=== PATIENT | female | born 1955 | race Caucasian/White ===

== ENCOUNTER 2018-09-05 20:17 | Inpatient (IN) | payer OTHER ==
--- OUTSIDE RECORDS SUMMARY | 2018-09-05 20:42 | XMS REPORT | Continuity of Care Document ---
:1955 External Reference #:[id number] Author Name Magali Tinoco Care Team Providers Name Role Phone Julienne Hernandez MD Primary Care Physician Unavailable Payers Date Identification Numbers Payment Provider Subscriber Policy Number: [id number] Cesar Luna PayID: [id number] [address] [place] [address] Problems Active Problems Provider Date Essential hypertension Ghassan Franco M.D. Onset: 11/12/2017 Family History Date Family Member(s) Observation Comments General Hypertension daughter General Obesity Father Alive And Well Social History Type Date Description Comments Sex Unknown Marital Status Single Occupation Unemployed ETOH Use Occasionally consumes alcohol Tobacco Use Start: Unknown Patient is a current smoker, 1/4-1/2 ppd; max 1ppd, smokes every day began age 13 Smoking Status Reviewed: 08/11/18 Patient is a current smoker, 1/4-1/2 ppd; max 1ppd, smokes every day began age 13 Allergies, Adverse Reactions, Alerts Description No Known Drug Allergies Medications Active Medications SIG Qnty Indications Ordering Date Provider Nicotine Transdermal Use one patch 28units Z72.0 Jc S. 08/11/2018 System Step 2 daily, use Jorge, DO FACC 14mg/24HR generic Patches 24HR Nicotrol Use generic, 168units Z72.0 Jc S. 08/11/2018 10mg Inhaler every 2 to 3 Jorge, DO FACC hours as needed for nicotine cravings Lisinopril-Hydrochloro 1/2 tab by mouth Unknown thiazide every day 10-12.5mg Tablets Spironolactone 2x week Unknown 25mg Tablets Meloxicam 1 by mouth every Unknown 15mg Tablets day prn Furosemide 1 by mouth twice Unknown 20mg Tablets a week D3 Super Strength take one Unknown capsule/tablet 2000Unit Capsules daily by mouth Alavert Allergy/Sinus 1 every 12 hours Unknown as needed 5-120mg Tablets ER 12HR History Medications Duloxetine HCL take 1 capsule by beto Franco, 11/12/2017 - 30mg mouth every M.D. 12/11/[address] Part morning for 1 week, then 2 tabs daily Furosemide 2x week Unknown - 40mg Tablets 07/16/2018 Phentermine HCL Unknown - 30mg 08/07/2018 Capsules Sertraline HCL 1 by mouth every Unknown - 25mg day 08/10/2018 Tablets Pretz Sod Chloride-Yerba Unknown - Solution Ree-Gly Solution 08/10/2018 as directed for nasal drip Wild Lomax Flavor wild lomax Unknown - extract otc herbal 08/10/2018 Liquid use as directed Vital Signs Date Vital Result Comment 08/11/2018 11:43am Height 61.5 inches 5'1.50" Weight 192.00 lb no shoes Heart Rate 80 /min BP Systolic Sitting 110 mmHg lue reg cuff BP Diastolic Sitting 70 mmHg lue reg cuff BP Systolic Standing 108 mmHg lue reg cuff BP Diastolic Standing 70 mmHg lue reg cuff Respiratory Rate 14 /min BMI (Body Mass Index) 35.7 kg/m2 12/12/2017 11:45am Height 61.5 inches 5'1.50" Weight 215.00 lb Heart Rate 87 /min BP Systolic Sitting 114 mmHg "113-117/70" at home readings BP Diastolic Sitting 68 mmHg "113-117/70" at home readings O2 % BldC Oximetry 97 % BMI (Body Mass Index) 40.0 kg/m2 11/12/2017 10:45am Height 61.5 inches 5'1.50" Weight 213.00 lb Heart Rate 87 /min BP Systolic Sitting 124 mmHg BP Diastolic Sitting 80 mmHg O2 % BldC Oximetry 97 % BMI (Body Mass Index) 39.6 kg/m2 Procedures Date Code Description Status 08/11/2018 60370 EKG Tracing & Interpretation Completed Encounters Type Date Location Provider Dx Diagnosis Office Visit 06/22/2018 [facility] Jose Luis Vargas MD L82.1 Other seborrheic 4:10p keratosis L73.8 Other specified follicular disorders D23.5 Other benign neoplasm of skin of trunk I83.92 Asymptomatic varicose veins of left lower extremity Office Visit 12/12/2017 [facility] Ghassan E. I10 Essential 11:20a IsaccDalila Franco M.D. (primary) hypertension M79.7 Fibromyalgia F34.1 Dysthymic disorder Office Visit 11/12/2017 [facility] Ghassan E. I10 Essential 10:20a Danielito Franco M.D. (primary) hypertension M79.7 Fibromyalgia F34.1 Dysthymic disorder Z13.220 Encounter for screening for lipoid disorders K76.0 Fatty (change of) liver, not elsewhere classified R87.619 Unsp abnormal cytolog findings in specmn from cervix uteri Plan of Treatment 08/11/2018 - Jc Jorge DO FACCE78.5 Hyperlipidemia, unspecifiedComments: As we discussed today, your 10 year risk based on April, labs of having a heart attack or similar cardiovascular event is 9.3%.When this number is greater than 7.5%, we recommend starting a statin. This would decrease your risk to 7% over the next 10 years.You have started a diet and have lost 20 pound since these labs were checked. You want to wait until you have lost further weight and have the lipids rechecked before deciding on starting a statin which is reasonable.Quitting smoking is thesingle best thing you can do for your health.Follow up:PRNI10 Essential (primary) vtwxbfgkgzmbW68.0 Tobacco useNew Medication:Nicotine Transdermal System Step 2 14 mg/24HR - Use one patch daily, use genericNicotrol 10 mg - Use generic, every 2 to 3 hours as needed for nicotine cravings
--- OUTSIDE RECORDS SUMMARY | 2018-09-05 20:42 | XMS REPORT | Continuity of Care Document ---
:1955 External Reference #:[id number] Author Name Jeremiah Edwards MD Address [address] [place] [address] Care Team Providers Name Role Phone Julienne Hernandez MD Care Team Information Numerologist Unavailable Julienne Hernandez MD Primary Care Physician Unavailable Payers Date Identification Numbers Payment Provider Subscriber Policy Number: [id number] [facility] Allison Luna PayID: [id number] [address] [place] [address] Problems Active Problems Provider Date Essential hypertension Jeremiah Edwards MD Onset: 07/31/2018 Allergic rhinitis Jeremiah Edwards MD Onset: 07/31/2018 Allergic rhinitis due to pollen Jeremiah Edwards MD Onset: 07/31/2018 Family History Date Family Member(s) Observation Comments General No Current Problems Social History Type Date Description Comments Sex Unknown Tobacco Use Start: Unknown Home is not smoke-free Pets Fish Pets 2 cats Tobacco Use Start: Unknown Heavy tobacco smoker (more than 10 cigarettes/day) Smoking Status Reviewed: 08/26/18 Heavy tobacco smoker (more than 10 cigarettes/day) Allergies, Adverse Reactions, Alerts Description No Known Drug Allergies Medications Active Medications SIG Qnty Indications Ordering Provider Date Fluticasone Propionate [place] 2 sprays 1units J30.1 Jeremiah Yo 2018 in each nostril MD Jerry 50mcg/Act Suspension once daily Alavert one tablet by 30tabs J30.1 Jeremiah Yo 07/31/2018 10mg Tablets mouth every day MD Jerry Dispers as needed Meloxicam Take 1 Tablet Unknown 15mg Tablets By Mouth Every Day [facility] D3 Take One Unknown 2000Unit Capsules Capsule By Mouth Every Day For 90 Days Sertraline HCL Take 1 Tablet Unknown 25mg By Mouth Every Tablets Day [facility] Fish Oil Take 2 Capsules Unknown 1200mg By Mouth Every Capsules DR Day Furosemide Take 1 Tablet Unknown 20mg Tablets By Mouth Every Day as Needed For Edema Lisinopril-Hydrochloro Take 1 Tablet Unknown thiazide By Mouth Every 10-12.5mg Day Tablets Spironolactone Take 1 Tablet Unknown 25mg By Mouth Every Tablets Day Duloxetine HCL Take One Unknown 30mg Caps Capsule By DR Part Mouth Every Morning For 1 Week Then 2 Capsules Daily History Medications Flonase Allergy 2 puffs each 9.900ml Porfirio30.1 Jeremiah Yo 07/31/2018 - Relief nostril every MD Jerry 08/26/2018 50mcg/Act day Suspension Vital Signs Date Vital Result Comment 08/26/2018 11:24am BP Systolic 106 mmHg BP Diastolic 64 mmHg Height 63 inches 5'3" Weight 191.00 lb BMI (Body Mass Index) 33.8 kg/m2 Heart Rate 76 /min Respiratory Rate 16 /min O2 % BldC Oximetry 98 % Results Test Date Facility Test Result H/L Range Note Order 07/31/2018 [facility] Skin Test Seasonal and <pending> Environmental Procedures Date Code Description Status 07/31/2018 59986 Allergy Tests Percutaneous W/ Allergenic Extracts Completed Encounters Type Date Location Provider Dx Diagnosis Office Visit 08/26/2018 Adolfo Monroy30.1 Allergic rhinitis due 11:00a KIRA Glover to pollen J30.89 Other allergic rhinitis Office Visit 07/31/2018 11:00a Wendy Oneal Allergic rhinitis MD due to pollen J30.89 Other allergic rhinitis Plan of Treatment 08/26/2018 - Criselda Glover RPA-CJ30.1 Allergic rhinitis due to pollenNew Medication:Fluticasone Propionate 50 mcg/Act - [place] 2 sprays in each nostril once dailyComments:Patient with both seasonal and perennial allergic rhinitis. Total IgE level is 70.9 kU/l. I have discussed environmental controls for dust, dust mites, mold spores and pollen. Patient is not interestedin immunotherapy. Patient to continue Alavert as prescribed. Okay to add Fluticasone nasal spray forbreakthrough symptoms.Follow up:1 year.J30.89 Other allergic rhinitis
--- OUTSIDE RECORDS SUMMARY | 2018-09-05 20:42 | XMS REPORT | Continuity of Care Document ---
:1955 External Reference #:[id number] Author Name Ashlie Gomez Care Team Providers Name Role Phone Julienne Hernandez MD Care Team Information Speed Runner Unavailable Julienne Hernandez MD Primary Care Physician Unavailable Payers Date Identification Numbers Payment Provider Subscriber Policy Number: [id number] [facility] Allison Luna PayID: [id number] [address] [place] [address] Problems Active Problems Provider Date Essential hypertension [...] (more than 10 cigarettes/day) Smoking Status Reviewed: 07/31/18 Heavy tobacco smoker (more than 10 cigarettes/day) Allergies, Adverse Reactions, Alerts Description No Known Drug Allergies Medications Active Medications SIG Qnty Indications Ordering Provider Date Flonase Allergy 2 puffs each 9.900ml J30.1 Jeremiah oY 07/31/2018 Relief nostril every MD Jerry 50mcg/Act day Suspension Alavert one tablet by 30tabs J30.1 Jeremiah Yo 07/31/2018 10mg Tablets mouth every day MD Jerry Dispers as needed Meloxicam Take 1 Tablet Unknown 15mg Tablets By Mouth Every Day [facility] D3 Take One Unknown 2000Unit Capsule By Capsules Mouth Every Day For 90 Days Sertraline HCL Take 1 Tablet Unknown 25mg By Mouth Every Tablets Day [facility] Fish Oil Take 2 Capsules Unknown 1200mg By Mouth Every Capsules DR Day Furosemide Take 1 Tablet Unknown 20mg Tablets By Mouth Every Day as Needed For Edema Lisinopril-Hydrochlor Take 1 Tablet Unknown othiazide By Mouth Every 10-12.5mg Day Tablets Spironolactone Take 1 Tablet Unknown 25mg By Mouth Every Tablets Day Duloxetine HCL Take One Unknown 30mg Capsule By Caps DR Part Mouth Every Morning For 1 Week Then 2 Capsules Daily Vital Signs Date Vital Result Comment 08/26/2018 [...] Environmental Procedures Date Code Description Status 07/31/2018 82913 Allergy Tests Percutaneous W/ Allergenic Extracts Completed Encounters Type Date Location Provider Dx Diagnosis Office Visit 07/31/2018 [place] Jeremiah Edwards, J30.1 Allergic rhinitis 11:00a due to pollen J30.89 Other allergic rhinitis Plan of Treatment 07/31/2018 - Jeremiah Edwards MDJ30.1 Allergic rhinitis due to pollenNew Medication:Flonase Allergy Relief 50 mcg/Act - 2 puffs each nostril every dayAlavert 10 mg - one tablet by mouth every day as fghhofY19.89 Other allergic rhinitis
--- NOTE | 2018-09-05 22:01 | ED ---
Abdominal Pain/Female - HPI Summary HPI Summary: 63-year-old female presents with onset of right upper quadrant pain at 2 AM in the morning. States that she had 3 episodes of emesis throughout the night however has not had any further episodes during the day although she has not tried to eat anything. States she continues to have some intermittent nausea. States the pain is fairly constant. No aggravating or alleviating factors. Patient states that she has been on a high fat Keto diet. Last bowel movement was this morning and states was normal color and consistency. Denies fever, chills, chest pain, palpitations, shortness of breath, diarrhea, back or flank pain, dysuria, frequency, urgency, or hematuria. - History of Current Complaint Chief Complaint: EDAbdPain Stated Complaint: ABD PAIN PER EMS Time Seen by Provider: 09/05/18 22:00 Hx Obtained From: Patient Pain Intensity: 8 Allergies/Adverse Reactions: Allergies Allergy/AdvReac Type Severity Reaction Status Date / Time No Known Allergies Allergy Verified 09/05/18 20:24 Home Medications: Home Medications Furosemide 20 mg pe PO DAILY 09/05/18 [History Confirmed 09/05/18] Lisinopril/HCTZ 10/12.5(NF) [Zestoretic 10/12.5(NF)] 0.25 tab PO DAILY 09/05/18 [History Confirmed 09/05/18] Loratadine [Alavert] 1 tab PO DAILY 09/05/18 [History Confirmed 09/05/18] PMH/Surg Hx/FS Hx/Imm Hx Previously Healthy: Yes Cardiovascular History: Reports: Hx Hypertension GI History: Denies: Hx Diverticulosis, Hx Gall Bladder Disease, Hx Gastroesophageal Reflux Disease, Hx Gastrointestinal Bleed, Hx Obstructive Bowel - Surgical History Surgical History: None Infectious Disease History: No Infectious Disease History: Denies: Traveled Outside the [place] in Last 30 Days - Family History Known Family History: Positive: Non-Contributory - Social History Occupation: Unemployed Lives: Alone Review of Systems Negative: Fever, Chills Cardiovascular: Negative Respiratory: Negative Positive: Abdominal Pain, Vomiting, Nausea. Negative: Diarrhea Negative: dysuria, discharge, frequency, flank pain, hematuria, urgency Musculoskeletal: Negative Skin: Negative Neurological: Negative All Other Systems Reviewed And Are Negative: Yes Physical Exam - Summary Physical Exam Summary: GENERAL APPEARANCE: Well developed, well nourished, alert and cooperative, and appears to be in no acute distress. CARDIAC: Normal S1 and S2. No S3, S4 or murmurs. Rhythm is regular. There is no peripheral edema, cyanosis or pallor. Extremities are warm and well perfused. Capillary refill is less than 2 seconds. Peripheral pulses intact. LUNGS: Clear to auscultation without rales, rhonchi, wheezing or diminished breath sounds. ABDOMEN: Positive bowel sounds. Soft, nondistended. RUQ tenderness with + Laura 's sign. No masses or hepatosplenomegally. No CVA tenderness. MUSKULOSKELETAL: ROM intact to all extremities. No joint erythema or tenderness. Normal muscular development. SKIN: Skin normal color, texture and turgor with no lesions or eruptions. Triage Information Reviewed: Yes Vital Signs On Initial Exam: Initial Vitals Temp Pulse Resp BP Pulse Ox 97.3 F 86 16 130/67 94 09/05/18 20:22 09/05/18 20:22 09/05/18 20:22 09/05/18 20:22 09/05/18 20:22 Vital Signs Reviewed: Yes Diagnostics - Vital Signs Vital Signs Temp Pulse Resp BP Pulse Ox 09/05/18 20:22 97.3 F 86 16 130/67 94 - Laboratory Result Diagrams: 09/08/18 07:03 09/08/18 07:03 Lab Statement: Any lab studies that have been ordered have been reviewed, and results considered in the medical decision making process. - Ultrasound No standard instances Ultrasound Interpretation Completed By: Radiologist Summary of Ultrasound Findings: EXAM: US Abdomen Limited, Right Upper Quadrant. EXAM DATE/TIME: 09/05/2018 10:38 PM. CLINICAL HISTORY: 63 years old , female; Abdominal pain; Tenderness; Right upper quadrant (ruq);. Additional info: Ruq pain. TECHNIQUE: Imaging protocol: Real-time ultrasound of the abdomen with image. documentation. Examination was focused on the right upper quadrant. COMPARISON: LIVER US LIVER 06/15/2018 9:31 AM. FINDINGS: Liver: Normal. No masses. Gallbladder: Cholelithiasis including a 1.6 cm stone in the gallbladder neck. The gallbladder is distended however there is no wall thickening or pericholecystic fluid. There is a positive sonographic Laura sign reported. Findings are inconsistent with regard to cholecystitis. Common bile duct: Normal. No stones. No dilation. Pancreas: Pancreatic tail is obscured by bowel gas. Right kidney: 3.6 cm cyst redemonstrated lower pole of the right kidney. IMPRESSION: Cholelithiasis including a 1.6 cm stone in the gallbladder neck. The gallbladder is distended however there is no wall thickening or pericholecystic fluid. There is a positive sonographic Laura sign reported. Findings are inconsistent with regard to cholecystitis. Abdominal Pain Fem Course/Dx - Course Course Of Treatment: 63-year-old female presents with onset of right upper quadrant pain at 2 AM in the morning. States that she had 3 episodes of emesis throughout the night however has not had any further episodes during the day although she has not tried to eat anything. States she continues to have some intermittent nausea. States the pain is fairly constant. No aggravating or alleviating factors. Patient states that she has been on a high fat Keto diet. Last bowel movement was this morning and states was normal color and consistency. Denies fever, chills, chest pain, palpitations, shortness of breath, diarrhea, back or flank pain, dysuria, frequency, urgency, or hematuria. Afebrile. Vital signs stable. Patient had a soft, nondistended abdomen with RUQ tenderness, + Laura's sign, no masses or hepatosplenomegally, no CVA tenderness and otherwise unremarkable exam. She had an elevated white blood cell count of 15.5 with an absolute neutrophil count of 12.2. She had an elevated total bilirubin of 1.40 and alkaline phosphatase of 111. Ultrasound of the gallbladder showed cholelithiasis including a 1.6 cm stone in the neck of the gallbladder, gallbladder distention without thickening of the gallbladder wall or pericholecystic fluid. Patient received a liter of normal saline and was given a dose of Zosyn in the ED. She refused pain medications and antiemetics stating she did not like to take medications. The case was discussed initially with Dr. Roche, gastroenterology, who did not feel that his services were needed at this time and recommended contacting general surgery. Spoke with Dr. Choe who is recommending admission to his service for observation and he will evaluate the patient in the morning. I discussed all the findings as well as the plan of care with the patient who is agreeable to this. - Diagnoses Provider Diagnoses: RUQ abdominal pain - Provider Notifications Discussed Care Of Patient With: cJ Choe Time Discussed With Above Provider: 00:09 Instructed by Provider To: Admit As Inpatient Discharge - Sign-Out/Discharge Documenting (check all that apply): Patient Departure Patient Received Moderate/Deep Sedation with Procedure: No - Discharge Plan Condition: Stable Disposition: ADMITTED TO [facility] - Billing Disposition and Condition Condition: STABLE Disposition: Admitted to [facility]
[2018-09-05 22:04] LABS: ABS Lymphocytes 1.4 10^3/ul (1.0-4.8); ABS Monocytes 0.9 10^3/ul (0-0.8); ABS Neutrophils 12.9 10^3/ul (1.5-7.7); Hematocrit 46 % (35-47); Hemoglobin 15.7 g/dL (12.0-16.0); Lymphocyte % 9.4 %; Mean Corpuscular HGB Conc 34 g/dL (31-36); Mean Corpuscular Hemoglobin 30 pg (27-31); Mean Corpuscular Volume 90 fL (80-97); Nucleated Red Blood Cells % 0.1; Platelet Count 241 10^3/uL (150-450); Red Blood Count 5.17 10^6 /uL (3.70-4.87); Red Cell Distribution Width 14 % (10-15); White Blood Count 15.3 10^3/uL (3.5-10.8)
[2018-09-05 22:19] LABS: Albumin 4.3 g/dL (3.2-5.2); Albumin/Globulin Ratio 1.2 (1-3); BUN/Creatinine Ratio 23.1 (8-20); Calcium 9.3 mg/dL (8.6-10.3); EGFR African American 112.1 (>60); EGFR Non-African American 92.7 (>60); Globulin 3.7 g/dL (2-4); Total Bilirubin 1.4 mg/dL (0.2-1.0)
[2018-09-05] MEDS ORDERED: NS 0.9% 1000 ML** 1,000 ML IV ONE (23:07)
[2018-09-05] MEDS ORDERED: Piperacillin/Tazobac ADVAN(*) 3.375 GM in NS 0.9% 100 ML* 100 ML IVPB ONE (23:55)
[2018-09-06] MEDS ORDERED: Ondansetron INJ* 2 MG/ML VIAL IV PRN (00:15)
[2018-09-06 00:16] LABS: Urine Appearance Cloudy; Urine Bacteria Absent (Absent); Urine Bilirubin Negative (Negative); Urine Blood 2+ (Negative); Urine Color Yellow; Urine Glucose Negative (Negative); Urine Ketones 2+ (Negative); Urine Nitrite Negative (Negative); Urine Protein Negative (Negative); Urine Red Blood Cell 1+(3-5/hpf) (Absent); Urine Specific Gravity 1.026 (1.010-1.030); Urine Squamous Epithelial Cell Present (Absent); Urine Urobilinogen Negative (Negative); Urine White Blood Cell 1+(6-10/hpf) (Absent)
[2018-09-06] MEDS: Acetaminophen TAB* 325 MG PO PRN ×2 (02:14→06:21)
[2018-09-06] MEDS: Lactated Ringers 1000 ML Bag* 1,000 ML IV SCH ×2 (02:59→17:41)
[2018-09-06] MEDS ORDERED: Zosyn per Pharmacy* NOTE FOLLOW UP PRN (04:08)
[2018-09-06] MEDS ORDERED: Piperacillin/Tazobactam VIAL*) 3.375 GM in NS 0.9% 100 ML* 100 ML IVPB SCH (04:30)
[2018-09-06] MEDS: Piperacillin/Tazobactam VIAL*) 3.375 GM in NS 0.9% 100 ML* 100 ML IVPB SCH ×4 (06:20→23:59)
[2018-09-06] MEDS: HCTZ PO SCH (08:44)
[2018-09-06] MEDS: Cetirizine* 10 MG TAB PO SCH ×2 (08:44→09:28)
[2018-09-06] MEDS: LISINOPRIL PO SCH (08:44)
[2018-09-06] MEDS ORDERED: LORATADINE PO SCH (09:00)
[2018-09-06] MEDS ORDERED: HYDROmorphone INJ1* 1 MG/ML SYRINGE IV SLOW PU PRN (10:58)
--- NOTE | 2018-09-06 12:32 | HP ---
CC: Dr. [facility]; [facility] * HISTORY AND PHYSICAL: DATE OF ADMISSION: 09/06/18 The patient is seen in room 347 on 09/06/18. HISTORY OF PRESENT ILLNESS: I was contacted over night about Ms. Luna, a 63 - year-old female, who presented to the emergency room with a close to 1 day history of upper abdominal pain along with nausea. Workup in the emergency room including an ultrasound and labs was consistent with acute cholecystitis and I was contacted and with the help of the ER provider, made determination to admit the patient over the phone with planned visit this morning. The patient did well over night. She was treated with narcotics and was started on antibiotics by the ER providers. The patient describes onset of symptoms at 2 a.m. yesterday morning. Pain was in the upper abdomen that led to her waking up and she was unable to get back to sleep. She had decreased appetite and felt hot, but checked her temperature and it was normal. She denied any chills. She was able to eat only a cookie later on in the day and with persistent pain presented to the emergency room. Pain radiated to her back at times, but not to her shoulder. The patient denies any similar pain in the past. Pain is relieved by rubbing on the area, lying flat, or narcotics. No identifying aggravating factors. The patient does feel somewhat better since admission. PAST MEDICAL HISTORY: Anxiety and hypertension. PAST SURGICAL HISTORY: None, although she had some small plastic surgery procedure to her face that did not require anesthesia. MEDICATIONS: List reviewed and include: 1. Lisinopril. 2. Hydrochlorothiazide. 3. Loratadine. 4. The patient does have prescription for furosemide, which she takes about 2 to 3 times a month when she feels her face is swollen. ALLERGIES: No known drug allergies. FAMILY HISTORY: Noncontributory. Mother and father both had gallbladders out as well as her aunt. Her son had what sounds to be gallstone pancreatitis. SOCIAL HISTORY: She lives alone with 2 cats. She has 2 children. She is not working. Nonsmoker and nondrinker. REVIEW OF SYSTEMS: No significant weight loss or weight gain; however, the patient is on a keto diet and has been for a couple of weeks with fat only diet trying to lose weight. She is obese with a BMI of 34. No fevers, but flushed as described. No cardiovascular disease. She is able to walk up a flight of stairs. No cerebrovascular disease. Anxiety but does not see a psychiatrist for this. No GERD like symptoms. Abdominal pain as described. No change in bowel habits. The patient has refused colonoscopy. She has never had one. No dysuria. No dark colored urine. No light colored stools. No bleeding or clotting disorders per se, but the patient did require transfusions amounting to 2 during menopause and she had significant bleeding. The patient had no procedures and the bleeding has since stopped. She had no transfusion reactions during this time. No endocrine disorders. PHYSICAL EXAMINATION GENERAL: She is alert and oriented x3. She is in no apparent distress. VITAL SIGNS: She is afebrile. Vital signs are stable. HEAD, EYES, EARS, NOSE AND THROAT: Normocephalic, atraumatic. Sclerae anicteric. Mucous membranes are moist. NECK: No lymphadenopathy. LUNGS: Clear to auscultation bilaterally. ABDOMEN: Soft, obese. Tender in the right upper quadrant with positive Laura' s sign. Soft elsewhere without masses or hernias. RECTAL: Exam is not performed. No CVA tenderness. EXTREMITIES: Within normal limits with no pitting edema. DIAGNOSTIC STUDIES/LAB DATA: Labs reviewed and show elevated white blood cell count of 15.3, with left shift. H and H 15/46. Chemistry panel reviewed and shows elevated T-bili of 1.4 and elevated alk phos of 111. We will repeat these labs. Lipase is normal as are the transaminases. Urinalysis showed blood and ketones. Ultrasound report and images reviewed and consistent with acute cholecystitis with gallstones and gallbladder wall thickening with pericholecystic fluid. IMPRESSION: Acute cholecystitis, unlikely choledocholithiasis. Plan will be antibiotics, low-fat diet, operating room tomorrow for laparoscopic cholecystectomy. Outlined details of the procedure, going over the risks, benefits, and alternatives. The patient listened, she wanted to discuss the alternatives and we did this at length discussing antibiotics and observation in the hospital until the patient's condition improved. Her son was on the line who also strongly recommended a laparoscopic cholecystectomy given the details. He is a inweaver. PLAN/RECOMMENDATIONS: We spoke about the possible complications, which include but not limited to bleeding, infection, bile leak and bile duct injury, retained common bile duct stone, need for additional surgeries or open procedure. The patient's questions were answered and she understands the plan. She will continue with antibiotics, low fat diet for today, n.p.o. at midnight and scheduled surgery for tomorrow at an unknown time with either me or one of my partners. [id number]/CPS #: [id number] MTDD
[2018-09-06 12:56] LABS: Albumin 3.6 g/dL (3.2-5.2); Albumin/Globulin Ratio 1.2 (1-3); Indirect Bilirubin 1.7 mg/dL (0.3-1.0); Total Protein 6.6 g/dL (6.4-8.9)
[2018-09-07] MEDS: Piperacillin/Tazobactam VIAL*) 3.375 GM in NS 0.9% 100 ML* 100 ML IVPB SCH ×5 (06:19→22:26)
[2018-09-07 07:06] LABS: ABS Eosinophils 0.1 10^3/ul (0-0.6); ABS Lymphocytes 1.8 10^3/ul (1.0-4.8); ABS Monocytes 1.1 10^3/ul (0-0.8); Eosinophil % 0.5 %; Hematocrit 37 % (35-47); Hemoglobin 12.5 g/dL (12.0-16.0); Mean Corpuscular HGB Conc 34 g/dL (31-36); Mean Corpuscular Hemoglobin 31 pg (27-31); Mean Corpuscular Volume 90 fL (80-97); Mean Platelet Volume 8.3 fL (7.4-10.4); Platelet Count 177 10^3/uL (150-450); Red Blood Count 4.07 10^6 /uL (3.70-4.87); Red Cell Distribution Width 14 % (10-15)
[2018-09-07 07:40] LABS: ALT 40 U/L (7-52); AST 25 U/L (13-39); Albumin/Globulin Ratio 1.3 (1-3); Alkaline Phosphatase 75 U/L (34-104); Anion Gap 8 mmol/L (2-11); Blood Urea Nitrogen 7 mg/dL (6-24); C Reactive Protein 150.15 mg/L (<8.01); CO2 Carbon Dioxide 23 mmol/L (22-32); Calcium 8.2 mg/dL (8.6-10.3); Chloride 106 mmol/L (101-111); EGFR African American 151.8 (>60); EGFR Non-African American 125.4 (>60); Globulin 2.4 g/dL (2-4); Glucose 92 mg/dL (70-100); Potassium 3.7 mmol/L (3.5-5.0); Sodium 137 mmol/L (135-145); Total Protein 5.4 g/dL (6.4-8.9)
[2018-09-07] MEDS: Cetirizine* 10 MG TAB PO SCH (09:15)
[2018-09-07] MEDS: LISINOPRIL PO SCH (09:15)
[2018-09-07] MEDS: HCTZ PO SCH (09:15)
--- NOTE | 2018-09-07 09:42 | PN ---
Progress Note - Progress Note Date of Service: 09/07/18 SOAP: Subjective: Still with RUQ abdominal pain No N/V Objective: Temp Pulse Resp BP Pulse Ox 98.1 F 73 18 118/55 91 09/07/18 07:43 09/07/18 07:43 09/07/18 07:43 09/07/18 07:43 09/07/18 07:43 Intake & Output 09/05/18 09/06/18 09/07/18 09/08/18 06:59 06:59 06:59 06:59 Intake Total 403 2356 Output Total 300 900 Balance 103 1456 Weight 190 lb Intake: IV Fluids 253 1726 LR 253 1442 NS (0.9%) 75 ZOSYN 209 IVPB 110 ZOSYN 110 Oral 150 520 Output: Urine 300 900 Other: # Bowel Movements 0 PEX: Comfortable Lungs are clear Abd is soft and slightly distended. No prior incisions Tender with some guarding in the right upper quadrant, no peritoneal irritation or mass Normoactive bowel sounds Ext without edema Laboratory Results - last 24 hr 09/06/18 09/07/18 09/07/18 12:03 06:04 06:04 WBC 14.0 H RBC 4.07 Hgb 12.5 Hct 37 MCV 90 MCH 31 MCHC 34 RDW 14 Plt Count 177 MPV 8.3 Neut % (Auto) 78.5 Lymph % (Auto) 13.0 [place] % (Auto) 7.8 Eos % (Auto) 0.5 Baso % (Auto) 0.2 Absolute Neuts (auto) 11.0 H Absolute Lymphs (auto) 1.8 Absolute Monos (auto) 1.1 H Absolute Eos (auto) 0.1 Absolute Basos (auto) 0.0 Absolute Nucleated RBC 0.0 Nucleated RBC % 0.0 Sodium 137 Potassium 3.7 Chloride 106 Carbon Dioxide 23 Anion Gap 8 BUN 7 Creatinine 0.50 L Est GFR ( Amer) 151.8 Est GFR (Non-Af Amer) 125.4 BUN/Creatinine Ratio 14.0 Glucose 92 Calcium 8.2 L Total Bilirubin 2.00 H 1.90 H Direct Bilirubin 0.30 H Indirect Bilirubin 1.7 H AST 16 25 ALT 21 40 Alkaline Phosphatase 86 75 C-Reactive Protein 150.15 H Total Protein 6.6 5.4 L Albumin 3.6 3.0 L Globulin 3.0 2.4 Albumin/Globulin Ratio 1.2 1.3 Lipase < 10 L US reviewed--Gallstones in neck of gallbladder, no wall thickening, no ductal dilation Assessment: Acute calculous cholecystitis Leukocytosis secondary to above Total bilirubin up slightly, alkaline phos, AST/ALT normal. Mainly indirect component to bilirubin elevation and with no ductal dilation on US suspect slight elevation is secondary to inflammation, not CBD stone. Plan: Laparoscopic choleystectomy today Procedure discussed with patient in detail and the risks of, but not limited to , of bleeding, infection, bile duct injury, bile leak, abscess, injury to peritoneal and retroperitoneal structures, possibility of an open procedure, and possible cholangiogram all explained. Also discussed with risks of GA and post op blood clots. She understands and gives her consent to proceed. No family or friends here today, she lives alone and will most likely stay tonight with discharge
[2018-09-07] MEDS ORDERED: Buffered Lidocaine 1% SYRIN* 1 ML/SYRINGE INTRADERM ONE (11:12)
[2018-09-07] MEDS ORDERED: Propofol* 10 MG/ML 20 ML BTL ONE ×2 (11:29→13:46)
[2018-09-07] MEDS ORDERED: Lidocaine 2% PF * 5 ML VIAL ONE (11:29)
[2018-09-07] MEDS ORDERED: fentaNYL* 50 MCG/ML 2 ML VIAL (100 MCG VIAL) ONE ×3 (11:29→14:54)
[2018-09-07] MEDS ORDERED: Dexamethasone IV* 4 MG/ML 1 ML (4 MG) ONE (11:29)
[2018-09-07] MEDS ORDERED: Ondansetron INJ* 2 MG/ML VIAL ONE ×2 (11:29→14:55)
[2018-09-07] MEDS ORDERED: Cisatracurium* 2 MG/ML MDV 5 ML ONE (11:30)
[2018-09-07] MEDS ORDERED: Ketorolac INJ* 30 MG/ML 1 ML VIAL ONE ×2 (11:30→13:34)
[2018-09-07] MEDS ORDERED: Midazolam* 1 MG/ML 5 ML VIAL (5 MG) ONE (11:30)
[2018-09-07] MEDS ORDERED: Bupivacaine 0.25% SDV PF* 10 ML VIAL INJ ONE (11:47)
[2018-09-07] MEDS ORDERED: Bupivacaine 0.25% EPI 200,000* 30 ML SDV ONE (12:18)
[2018-09-07] MEDS ORDERED: Ondansetron INJ* 2 MG/ML VIAL IV PRN (13:04)
[2018-09-07] MEDS ORDERED: Naloxone* 0.4 MG/ML 1 ML VIAL IV PRN (13:04)
[2018-09-07] MEDS ORDERED: fentaNYL* 50 MCG/ML 2 ML VIAL (100 MCG VIAL) IV PRN (13:04)
[2018-09-07] MEDS ORDERED: HYDROmorphone INJ1* 1 MG/ML SYRINGE IV PRN (13:04)
[2018-09-07] MEDS ORDERED: NS 0.9% 1000 ML** 1,000 ML IV SCH (17:15)
--- NOTE | 2018-09-07 18:37 | OP ---
CC: Dr. Hernandez * DATE OF OPERATION: 09/07/18 - ROOM #347 DATE OF : 59 SURGEON: Say Donis MD. CHIEF LIBRARIAN EXTENSION DEPARTMENT: Patti Hensley NP. ANESTHESIOLOGIST: Dr. Ross. ANESTHESIA: General with local. PRE-OP DIAGNOSES: Acute calculous cholecystitis. POST-OP DIAGNOSIS: Acute gangrenous calculous cholecystitis. OPERATIVE PROCEDURE: Laparoscopic cholecystectomy. IV FLUIDS: 1 L of crystalloid. ESTIMATED BLOOD LOSS: Minimal. WOUND CLASSIFICATION: III. DRAINS: None. COMPLICATIONS: None. SPECIMENS: Gallbladder containing gallstones. FINDINGS: The patient had acute calculous cholecystitis with patchy areas of gangrenous change in the gallbladder wall. There was a significant amount of inflammation, the cystic duct appeared to be of normal expected caliber. No drain was left. DESCRIPTION OF PROCEDURE: Written informed consent was obtained. The abdomen was marked with indelible ink, preoperative antibiotics were administered and the patient was taken to the operating room and placed in the supine position. Sequential compression devices and warming blankets were applied. General anesthesia was administered. The abdomen was prepped and draped in the usual sterile fashion. Time-out verification was completed. Initially, 1% lidocaine was infiltrated in the left upper quadrant of the abdomen. A small transverse incision was made. Using the 5 mm Optiview port under direct vision with a 5 mm 0-degree camera, and under direct vision on the camera screen, the Optiview port was passed through the fat, fascia, and peritoneum into the abdominal cavity without difficulty. The port was secured and the abdomen was insufflated to 15 mmHg. Careful evaluation using a laparoscope and insufflating the abdomen over the area where we had passed the Optiview showed no evidence of intraabdominal injury. Under direct vision, a 5 mm port was placed in the midline of the abdomen just above the umbilicus and a 12 mm port was placed in the usual epigastric site, and two 5 mm ports were placed in the right upper abdominal wall. The liver appeared to be unremarkable. There was no intraabdominal fluid. There was omentum adherent to the gallbladder and this was peeled off bluntly with a thick rind of omentum. The underlying gallbladder was distended and thick walled with patchy areas of gangrenous change. It was distended and difficult to grasp, and I did aspirate approximately 30 cc of greenish bile from the gallbladder allowing us to grasp this and elevate it up over the liver bed. There was a significant amount of edematous fatty omental adhesions to the gallbladder and these were brushed down with combination of blunt and sharp dissection to identify the infundibular area. There was a large amount of edematous fat and this was dissected off inferiorly to identify the infundibulum of the gallbladder. I took a considerable portion of the medial and lateral aspects of thickened edematous peritoneum off the gallbladder to identify the cystic duct as it entered the gallbladder. I also identified the cystic artery and this was doubly clipped and divided. I took a considerable portion of the inferior part of the gallbladder off the liver bed after proceeding with this, using the critical view technique to assure myself of these structures. It should be noted that I did make a small rent in the gallbladder, where we were grasping it and there was some bile leakage, but no obvious stones extravasated from the gallbladder. Once this dissection was complete, the cystic duct appeared to be of normal and expected caliber and it was triply clipped and divided. The gallbladder was removed from the liver bed using combination of blunt and sharp dissection along with cautery. This was placed in an EndoCatch bag. The gallbladder fossa was irrigated and hemostasis was assured. I thoroughly irrigated the area over the liver and laterally for some bilious fluid. The gallbladder was then removed through the epigastric port site. All ports were then removed under direct vision of the camera. There was no abdominal wall bleeding. All 5 incisions were closed at the skin level with subcuticular 4-0 Vicryl suture. Steri-Strips were applied. The patient tolerated the procedure well and was taken to the recovery room in stable condition. [id number]/[facility] #: [id number] [facility] HOSPITALCarlos
[2018-09-07] MEDS ORDERED: Piperacillin/Tazobactam VIAL*) 3.375 GM in NS 0.9% 100 ML* 100 ML IVPB SCH (22:00)
[2018-09-07] MEDS: HYDROmorphone INJ1* 1 MG/ML SYRINGE IV SLOW PU PRN (22:27)
[2018-09-08] MEDS: Piperacillin/Tazobactam VIAL*) 3.375 GM in NS 0.9% 100 ML* 100 ML IVPB SCH ×4 (04:09→21:54)
[2018-09-08] MEDS: HYDROmorphone INJ1* 1 MG/ML SYRINGE IV SLOW PU PRN (05:38)
[2018-09-08 07:57] LABS: ABS Lymphocytes 2.1 10^3/ul (1.0-4.8); ABS Monocytes 1.1 10^3/ul (0-0.8); ABS Neutrophils 11.7 10^3/ul (1.5-7.7); Eosinophil % 0.3 %; Hematocrit 36 % (35-47); Hemoglobin 12.3 g/dL (12.0-16.0); Lymphocyte % 13.9 %; Mean Corpuscular HGB Conc 34 g/dL (31-36); Mean Corpuscular Hemoglobin 31 pg (27-31); Mean Corpuscular Volume 90 fL (80-97); Mean Platelet Volume 8.4 fL (7.4-10.4); Platelet Count 223 10^3/uL (150-450); Red Blood Count 4.01 10^6 /uL (3.70-4.87); Red Cell Distribution Width 14 % (10-15)
[2018-09-08 08:14] LABS: Albumin 3.2 g/dL (3.2-5.2); Albumin/Globulin Ratio 1.1 (1-3); BUN/Creatinine Ratio 15.3 (8-20); Calcium 8.2 mg/dL (8.6-10.3); EGFR African American 125.4 (>60); EGFR Non-African American 103.6 (>60); Globulin 2.9 g/dL (2-4); Potassium 3.5 mmol/L (3.5-5.0); Total Bilirubin 1.2 mg/dL (0.2-1.0); Total Protein 6.1 g/dL (6.4-8.9)
[2018-09-08] MEDS: oxyCODONE/Acetamin 5/325 MG* TAB PO PRN ×3 (08:43→22:17)
[2018-09-08] MEDS: Cetirizine* 10 MG TAB PO SCH ×2 (08:44→08:48)
[2018-09-08] MEDS: LISINOPRIL PO SCH (08:44)
[2018-09-08] MEDS: HCTZ PO SCH (08:44)
[2018-09-08] MEDS ORDERED: Ketorolac INJ* 30 MG/ML 1 ML VIAL IV PUSH PRN (10:39)
--- NOTE | 2018-09-08 10:39 | PN ---
Progress Note - Progress Note Date of Service: 09/08/18 SOAP: Subjective: Doing well but having significant incisional pain Tolerating some po, taking Percocet. Required IV dilaudid last night Objective: Temp Pulse Resp BP Pulse Ox 98.1 F 71 16 135/64 94 09/08/18 08:21 09/08/18 08:21 09/08/18 09:03 09/08/18 08:21 09/08/18 08:21 Intake & Output 09/06/18 09/07/18 09/08/18 09/09/18 06:59 06:59 06:59 06:59 Intake Total 403 2356 2350 Output Total 300 900 550 Balance 103 1456 1800 Weight 190 lb Intake: IV Fluids 253 1726 1800 LR 253 1442 1800 NS (0.9%) 75 ZOSYN 209 IVPB 110 ZOSYN 110 Oral 150 520 550 Output: Urine 300 900 550 Other: # Bowel Movements 0 0 PEX: Appears uncomfortable-awake and alert Lungs are clear Abd is soft and slightly distended. Incisions CDI. Tender RUQ over incisions. Bowel sounds are present Ext without edema Laboratory Results - last 24 hr 09/08/18 09/08/18 07:03 07:03 WBC 15.0 H RBC 4.01 Hgb 12.3 Hct 36 MCV 90 MCH 31 MCHC 34 RDW 14 Plt Count 223 MPV 8.4 Neut % (Auto) 78.1 Lymph % (Auto) 13.9 [place] % (Auto) 7.6 Eos % (Auto) 0.3 Baso % (Auto) 0.1 Absolute Neuts (auto) 11.7 H Absolute Lymphs (auto) 2.1 Absolute Monos (auto) 1.1 H Absolute Eos (auto) 0.0 Absolute Basos (auto) 0.0 Absolute Nucleated RBC 0.0 Nucleated RBC % 0.0 Sodium 140 Potassium 3.5 Chloride 107 Carbon Dioxide 25 Anion Gap 8 BUN 9 Creatinine 0.59 Est GFR ( Amer) 125.4 Est GFR (Non-Af Amer) 103.6 BUN/Creatinine Ratio 15.3 Glucose 93 Calcium 8.2 L Total Bilirubin 1.20 H AST 63 H ALT 102 H Alkaline Phosphatase 79 Total Protein 6.1 L Albumin 3.2 Globulin 2.9 Albumin/Globulin Ratio 1.1 Assessment: POD# 1 s/p lap choly for acute calculous cholecystitis Elevated WBC Post-operative pain Plan: Overall she is doing well but I do not feel she is ready today for discharge. She lives alone and will need to take a cab home and I'm concerned she will not be able to control her pain adequately with oral meds alone. In addition she had a significant amount of inflammation in RUQ and with persistent elevated WBC I feel she would benefit with 24 hours more of IV Zosyn Will also add Toradol Increase activity, Pulmonary toilet All discussed with patient and her questions were answered.
[2018-09-09] MEDS: Piperacillin/Tazobactam VIAL*) 3.375 GM in NS 0.9% 100 ML* 100 ML IVPB SCH ×2 (04:08→10:29)
[2018-09-09 07:51] VITALS: BP 138/61
--- NOTE | 2018-09-09 08:31 | PN ---
Progress Note - Progress Note Date of Service: 09/09/18 SOAP: Subjective: Doing well-feels much better than yesterday Pain controlled with Percocet Up and ambulating Objective: Temp Pulse Resp BP Pulse Ox 97.8 F 61 16 138/61 94 09/09/18 07:12 09/09/18 07:12 09/09/18 07:12 09/09/18 07:12 09/09/18 07:12 Intake & Output 09/07/18 09/08/18 09/09/18 09/10/18 06:59 06:59 06:59 06:59 Intake Total 2356 2350 480 Output Total 900 550 100 Balance 1456 1800 380 Intake: IV Fluids 1726 1800 LR 1442 1800 NS (0.9%) 75 ZOSYN 209 IVPB 110 ZOSYN 110 Oral 520 550 480 Output: Urine 900 550 100 Other: Estimated Void Medium Medium # Bowel Movements 0 0 # Voids 1 PEX: Comfortable Lungs are clear Abd is soft and non-distended, incisions CDI Ext without edema Assessment: POD# 2 s/p lap choly for acute calculous cholcystitis Doing well Plan: D/C Home Rx for pain No antibiotics Outpatient follow up Instructions given.
[2018-09-09] MEDS: HCTZ PO SCH (08:41)
[2018-09-09] MEDS: LISINOPRIL PO SCH (08:41)
[2018-09-09] MEDS: Cetirizine* 10 MG TAB PO SCH (08:44)
--- NOTE | 2018-09-09 09:25 | DS ---
DISCHARGE SUMMARY: DATE OF ADMISSION: 09/06/18 DATE OF DISCHARGE: 09/09/18 PRINCIPAL DIAGNOSIS: Acute calculous cholecystitis. PROCEDURE PERFORMED: Laparoscopic cholecystectomy. SECONDARY DIAGNOSES: 1. Fibromyalgia. 2. Anxiety. 3. Hypertension. CONDITION ON DISCHARGE: Good. DISPOSITION: To home. MEDICINES ON DISCHARGE: 1. Zyrtec 10 mg daily. 2. Lisinopril/HCTZ 10/12.5 one tablet daily. 3. Oxycodone/acetaminophen 5/325 #6 p.r.n. p.o. q.4 hours. No refills. 4. Lasix 20 mg daily. 5. Loratadine 1 tablet daily. FOLLOWUP APPOINTMENT: Followup surgical appointment was made on 09/17/18, at 10:30 a.m. in the [facility] office. WOUND INSTRUCTIONS AND DIET: Please see attached sheet. HISTORY OF PRESENT ILLNESS: Ms. Allison Luna is a 63-year-old woman who presented to the emergen cy room with severe upper abdominal discomfort. This was associated with nausea and been present for about 24 hours. She has not had symptoms similar to this. In the emergency room, she was noted to have tenderness in the right upper quadrant. She had an elev ated white blood cell count of 15,000 with a slightly elevated total bilirubin of 1.4. Lipase was no rmal. She underwent an ultrasound which showed findings consistent with acute cholecystitis with gallbladde r wall thickening and gallstones and some pericholecystic fluid. HOSPITAL COURSE: The patient was seen in surgical consultation and was admitted to surgical service on the surgical short stay. She was started on IV Zosyn and kept n.p.o. and started on IV fluids. On hospital day #1, she underwent a laparoscopic cholecystectomy for a severe acute calculous cholecy stitis. She tolerated the procedure well. Postoperatively, she was maintained on IV Zosyn for 48 hours. No drain had been placed. Her diet wa s advanced as tolerated and her pain was initially controlled only with IV Dilaudid, but after approx imately 36 hours her pain was well controlled with oral Percocet and some IV Toradol. On postoperative day #2, her pain was well controlled, she was tolerating a soft diet, she was ambula ting and remained afebrile and she was discharged home. No further antibiotics were indicated. [id number]/[facility] #: [id number]
== END 2018-09-09 10:58 | disposition home or self-care (01) | DRG 263 ==
LOC: ED 20:17 → SSU 09-06 00:15
PROVIDERS: ADMIT Surgery; ATTEND Surgery
PROC: 0FT44ZZ Resection of Gallbladder, Percutaneous Endoscopic Approach (ICD-10-PCS; principal; 2018-09-07 13:30)
DX: K80.00 Calculus of gallbladder with acute cholecystitis without obstruction (principal); K82.A1 Gangrene of gallbladder in cholecystitis; D72.828 Other elevated white blood cell count; F41.9 Anxiety disorder, unspecified; I10 Essential (primary) hypertension; M79.7 Fibromyalgia; E66.9 Obesity, unspecified; Z79.899 Other long term (current) drug therapy; Z83.79 Family history of other diseases of the digestive system; Z68.34 Body mass index [BMI] 34.0-34.9, adult
CPT/HCPCS: 36415; 76705; 80053; 80076; 81003; 81015; 83690; 85025; 86140; 87077; 87086; 88304; 99285; A9270-GY; J1100; J1170; J1885; J2250; J2405; J2543; J2704; J3010; J3490